=== PATIENT | female | born 1995 | race Caucasian/White ===

== ENCOUNTER 2016-10-30 13:15 | Emergency (ER) | payer BC, OTHER ==
[2016-10-30] MEDS ORDERED: SODIUM CHLORIDE 0.9% 1,000 ML IV STA ×2 (13:59)
[2016-10-30] MEDS ORDERED: IBUPROFEN 600 MG TAB PO STA (14:00)
[2016-10-30] MEDS ORDERED: ACETAMINOPHEN TAB 500 MG TAB PO STA (14:00)
--- NOTE | 2016-10-30 14:00 | ED ---
Chest Pain HPI - General Chief Complaint: Chest Pain Stated Complaint: chest pain Time Seen by Provider: 10/30/16 13:38 Source: patient, RN notes reviewed, old records reviewed Mode of arrival: ambulatory Limitations: no limitations - History of Present Illness Initial Comments: 21-year-old female presents emergency Department chief complaint of increased chest pain and cough over the past week. Patient reports that she is a smoker. She reports that she went to urgent care yesterday and told her she come to the emergency department. Patient reports that she did not have time and needed to come at this time. Patient was emergency department tachycardic with a heart rate of 130. She does have a fever 102. Patient reports she's had no recent Motrin or Tylenol. She states that she has had increased pain to her chest whenever she is cough. Denies any abdominal pain or nausea or vomiting. She denies any significant Past medical history or surgical history. Patient denies any recent back pain, abdominal pain, nausea vomiting, numbness or tingling, dysuria or hematuria, constipation or diarrhea, headaches or visual changes, or any other current symptoms - Related Data Home Medications Medication Instructions Recorded Confirmed guaiFENesin SYRUP 100MG/5ML 200 mg PO Q12HR PRN 02/29/16 10/30/16 [Robitussin] Acetaminophen Tab [Tylenol Tab] 650 mg PO Q4H PRN 10/30/16 10/30/16 Albuterol Nebulized [Ventolin 2.5 mg INHALATION RT-Q6H PRN 10/30/16 10/30/16 Nebulized] Ferrous Sulfate [Feosol] 325 mg PO DAILY 10/30/16 10/30/16 Ibuprofen [Motrin] 400 - 800 mg PO Q6HR PRN 10/30/16 10/30/16 guaiFENesin [Mucinex] 600 - 1,200 mg PO Q8H PRN 10/30/16 10/30/16 Previous Rx's Medication Instructions Recorded Albuterol Inhaler [Ventolin Hfa 1 - 2 puff INHALATION Q6HR PRN #1 10/30/16 Inhaler] inhaler Azithromycin [Zithromax Z-pack] 250 mg PO DIRECTED #6 tab 10/30/16 Allergies Allergy/AdvReac Type Severity Reaction Status Date / Time No Known Allergies Allergy Verified 10/30/16 14:17 Review of Systems ROS Statement: Those systems with pertinent positive or pertinent negative responses have been documented in the HPI. ROS Other: All systems not noted in ROS Statement are negative. EKG Findings - EKG Comments: EKG Findings:: EKG performed at 1332 shows sinus tachycardia ventricular rate of 134 bpm. TX interval 144 ms. QRS ratio 80 ms. QT QTc is 3 at 2/450 ms. No evidence of ST elevation or T-wave inversion. No dysmetria or ventricular arrhythmias. Past Medical History Past Medical History: No Reported History History of Any Multi-Drug Resistant Organisms: None Reported Past Surgical History: Section Past Anesthesia/Blood Transfusion Reactions: No Reported Reaction Past Psychological History: No Psychological Hx Reported Smoking Status: Current every day smoker Past Alcohol Use History: None Reported Past Drug Use History: None Reported - Past Family History Mother Family Medical History: No Reported History General Exam - General Exam Comments Initial Comments: 21-year-old female. Patient does appear to be in mild discomfort. Limitations: no limitations General appearance: alert, in no apparent distress Head exam: Present: atraumatic, normocephalic, normal inspection Eye exam: Present: normal appearance, PERRL, EOMI. Absent: scleral icterus, conjunctival injection, periorbital swelling ENT exam: Present: normal exam, normal oropharynx, mucous membranes moist Neck exam: Present: normal inspection. Absent: tenderness, meningismus, lymphadenopathy Respiratory exam: Present: normal lung sounds bilaterally, wheezes. Absent: respiratory distress, rales, rhonchi, stridor Cardiovascular Exam: Present: regular rate, normal rhythm, normal heart sounds. Absent: systolic murmur, diastolic murmur, rubs, gallop, clicks GI/Abdominal exam: Present: soft, normal bowel sounds. Absent: distended, tenderness, guarding, rebound, rigid Extremities exam: Present: normal inspection, full ROM, normal capillary refill. Absent: tenderness, pedal edema, joint swelling, calf tenderness Back exam: Present: normal inspection Neurological exam: Present: alert, oriented X3, CN II-XII intact Psychiatric exam: Present: normal affect, normal mood Skin exam: Present: warm, dry, intact, normal color. Absent: rash Course Vital Signs 10/30/16 10/30/16 10/30/16 13:17 14:19 14:44 Temperature 99.2 F 101.2 F H Pulse Rate 120 H 117 H 124 H Pulse Rate [ 117 H Sander Setter ] Respiratory 18 18 Rate Blood Pressure 125/84 137/84 O2 Sat by Pulse 100 98 Oximetry 10/30/16 10/30/16 14:50 15:12 Temperature 98 F Pulse Rate 114 H 118 H Pulse Rate [ Sander Setter ] Respiratory 21 Rate Blood Pressure 141/109 O2 Sat by Pulse 95 Oximetry Chest Pain MDM - MDM 21-year-old female presents emergency Department chief complaint of increased chest pain and cough over the past week. Patient reports that she is a smoker. She reports that she went to urgent care yesterday and told her she come to the emergency department. Patient reports that she did not have time and needed to come at this time. Patient was emergency department tachycardic with a heart rate of 130. She does have a fever 102. Patient reports she's had no recent Motrin or Tylenol. She states that she has had increased pain to her chest whenever she is cough. Patient's chest x-ray was reviewed negative for any acute process. Lab work was somewhat reviewed and is negative however there are some labs pending including TSH and urinalysis and drug screen. Patient continues to be somewhat tachycardic at 150 bpm. She does say that she feels better after breathing treatment and fluids. At this time patient reports that she has to leave for children. I will treat the patient for a bronchitis given her wheezing and fever and similar symptoms. Patient will be started on azithromycin and given albuterol breathing treatment. Discussed that she will still AMA as I do not have all the labs back. Patient agrees. Patient understands treatment plan will comply. Return parameters were discussed. Disposition Clinical Impression: Bronchitis Disposition: Left Against Medical Advice Condition: Good Prescriptions: Albuterol Inhaler [Ventolin Hfa Inhaler] 1 - 2 puff INHALATION Q6HR PRN #1 inhaler PRN Reason: Shortness Of Breath Azithromycin [Zithromax Z-pack] 250 mg PO DIRECTED #6 tab Referrals: None,Stated [Primary Care Provider] - 1-2 days
[2016-10-30] MEDS ORDERED: IPRATROPIUM-ALBUTEROL 3 ML NEB INHALATION STA (14:30)
[2016-10-30 14:38] LABS: Basophils % (A) 1 %; CH 29.5; Eosinophils % (A) 1 %; HCT 39.3 % (34.0-46.0); HDW 2.57; HGB 13.4 gm/dL (11.4-16.0); Luc # (Auto) 0.11; Luc % (Auto) 2; Lymphocytes % (A) 21 %; MCH 29.8 pg (25.0-35.0); MCHC 34.2 g/dL (31.0-37.0); Mean Platelet Volume 7.7; Monocytes # (A) 0.3 k/uL (0-1.0); Monocytes % (A) 6 %; Neutrophils # (A) 3.4 k/uL (1.3-7.7); Neutrophils % (A) 70 %; RBC 4.52 m/uL (3.80-5.40); RDW 13.7 % (11.5-15.5); WBC 4.8 k/uL (3.8-10.6); WBC (Perox) 4.86
--- NOTE | 2016-10-30 14:45 | XR ---
EXAMINATION TYPE: XR chest 2V DATE OF EXAM: 10/30/2016 COMPARISON: NONE TECHNIQUE: PA and lateral views submitted. HISTORY: Cough FINDINGS: The lungs are clear and there is no pneumothorax, pleural effusion, or focal pneumonia. IMPRESSION: 1. No acute process.
[2016-10-30 14:50] LABS: ALT 39 U/L (9-52); AST 36 U/L (14-36); Alkaline Phosphatase 73 U/L (38-126); Anion Gap 9 mmol/L; Blood Urea Nitrogen 5 mg/dL (7-17); Calcium 8.9 mg/dL (8.4-10.2); Carbon Dioxide 21 mmol/L (22-30); Chloride 108 mmol/L (98-107); Glucose 98 mg/dL (74-99); Magnesium 1.7 mg/dL (1.6-2.3); Non-African American GFR(MDRD) >60 (>60 ml/min/1.73 sqM); Sodium 138 mmol/L (137-145); Total Bilirubin 0.3 mg/dL (0.2-1.3); Total Protein 6.8 g/dL (6.3-8.2)
[2016-10-30 14:51] LABS: Partial Thromboplastin Time 30.3 sec (22.0-30.0); Potassium 4.4 mmol/L (3.5-5.1); Prothrombin Time 10.2 sec (9.0-12.0)
[2016-10-30 15:13] VITALS: BP 141/109; PULSE 118; RESP 21; TEMP 98
[2016-10-30 16:05] LABS: Appearance,Urine Turbid (Clear); Bacteria,Urine Many /hpf; Bilirubin,Urine Negative (Negative); Glucose,Urine (UA) Negative (Negative); Ketones,Urine Negative (Negative); Leukocyte Esterase,Urine Negative (Negative); Nitrite,Urine Negative (Negative); PH, Urine 5.5 (5.0-8.0); Particle Count 25845; Protein,Urine Trace (Negative); RBC,Urine 1 /hpf (0-5); Specific Gravity,Urine 1.009 (1.001-1.035); Squamous Epithelial Cell,Urine 161 /hpf (0-4); UA Billing (MACRO vs. MICRO) MICRO; Urobilinogen,Urine <2.0 mg/dL (<2.0)
== END 2016-10-30 16:24 | disposition left against medical advice (07) ==
LOC: EC 13:15
DX: J40 Bronchitis, not specified as acute or chronic (principal); R00.0 Tachycardia, unspecified; F17.200 Nicotine dependence, unspecified, uncomplicated; Z79.899 Other long term (current) drug therapy
CPT/HCPCS: 36415; 71020; 80053; 80306; 81001; 83735; 84443; 84484; 85025; 85379; 85610; 85730; 87040; 93005; 94640; 96360; 96361; 99285

== ENCOUNTER → 2020-01-08 | Outpatient (CLI) | payer BC, OTHER | END | disposition home or self-care (01) | LOC: LABWHC1 10:22 | PROVIDERS: ATTEND Emergency Medicine | DX: Z20.828 Contact with and (suspected) exposure to other viral communicable diseases (principal) | CPT/HCPCS: U0003; C9803 ==

== ENCOUNTER 2023-12-20 21:50 | Emergency (ER) | payer BC, OTHER ==
[2023-12-20 21:58] VITALS: BP 145/81; PULSE 102; RESP 18; TEMP 98
[2023-12-20] MEDS: LIDOCAINE 1% INJ 10MG/ML (20 ML MDV) SQ ONE (22:16)
--- NOTE | 2023-12-20 22:26 | ED ---
Skin/Abscess/FB HPI - General Chief complaint: Skin/Abscess/Foreign Body Stated complaint: Fishing hook in L hand Time Seen by Provider: 12/20/23 22:03 Source: patient Mode of arrival: ambulatory Limitations: no limitations - History of Present Illness Initial comments: This patient is a 28-year-old woman who presents to have evaluation for a fishhook embedded in the pad of her left second finger. Patient was fishing approximately 9 PM when this occurred. She denies any other injury. No loss of sensation. She states that she believes her last tetanus shot was over 10 years ago. complaint: foreign body Onset/Timin -: hour(s) Tetanus Up to Date: no Severity: moderate Quality: sharp Consistency: constant Improves with: immobilization Worsens with: movement Context: other Associated symptoms: denies other symptoms Treatments Prior to Arrival: none - Related Data Home Medications Medication Instructions Recorded Confirmed guaiFENesin SYRUP 100MG/5ML 200 mg PO Q12HR PRN 02/29/16 10/30/16 [Robitussin] Acetaminophen Tab [Tylenol Tab] 650 mg PO Q4H PRN 10/30/16 10/30/16 Albuterol Nebulized [Ventolin 2.5 mg INHALATION RT-Q6H PRN 10/30/16 10/30/16 Nebulized] Ferrous Sulfate [Feosol] 325 mg PO DAILY 10/30/16 10/30/16 Ibuprofen [Motrin] 400 - 800 mg PO Q6HR PRN 10/30/16 10/30/16 guaiFENesin [Mucinex] 600 - 1,200 mg PO Q8H PRN 10/30/16 10/30/16 Previous Rx's Medication Instructions Recorded Albuterol Inhaler [Ventolin Hfa 1 - 2 puff INHALATION Q6HR PRN #1 10/30/16 Inhaler] inhaler Azithromycin [Zithromax Z-pack (6 250 mg PO DIRECTED #6 tab 10/30/16 tabs)] Allergies Allergy/AdvReac Type Severity Reaction Status Date / Time No Known Allergies Allergy Verified 12/20/23 21:54 Review of Systems ROS Statement: Those systems with pertinent positive or pertinent negative responses have been documented in the HPI. ROS Other: All systems not noted in ROS Statement are negative. Constitutional: Denies: fever Skin: Reports: as per HPI Neurological: Denies: weakness, numbness, paresthesias Hematological/Lymphatic: Denies: easy bleeding Past Medical History Past Medical History: No Reported History History of Any Multi-Drug Resistant Organisms: None Reported Past Surgical History: Section Additional Past Surgical History / Comment(s): c section X2 Past Anesthesia/Blood Transfusion Reactions: No Reported Reaction Past Psychological History: No Psychological Hx Reported Smoking Status: Current every day smoker, Vaper Past Alcohol Use History: None Reported Past Drug Use History: None Reported - Past Family History Mother Family Medical History: No Reported History General Exam Limitations: no limitations General appearance: alert, in no apparent distress Skin exam: Present: warm, dry, normal color, other (Patient has 1 rocío of a trouble hook embedded in the skin of the distal phalanx left second digit.) Course Vital Signs 12/20/23 21:55 Temperature 98.0 F Pulse Rate 102 H Respiratory 18 Rate Blood Pressure 145/81 O2 Sat by Pulse 100 Oximetry Procedures - Forgein Body Removal Soft Tissue Consent Obtained: verbal consent Site: hand Anesthetic Used: lidocaine 1% Foreign Body Suspected: Fish Hook Foreign Body Removed: yes Foreign Body Removal Technique: Forceps Patient Tolerated Procedure: well, no complications Medical Decision Making - Medical Decision Making I was able to remove the fishhook in the following manner. I cleansed the skin. I injected 1% lidocaine without epinephrine along the path of the fishhook. There was good local anesthesia. I was then able to use pliers to back the hook out without complication. This booster was ordered. The patient soaked the injury and antiseptic solution. Was pt. sent in by a medical professional or institution (, PA, LOGGING TRACTOR OPERATOR SWAMP, urgent care, hospital, or custodial...) When possible be specific @ -[No] Did you speak to anyone other than the patient for history (EMS, parent, family, police, friend...)? What history was obtained from this source @ -[No] Did you review nursing and triage notes (agree or disagree)? Why? @ -[I reviewed and agree with nursing and triage notes] Were old charts reviewed (outside hosp., previous admission, EMS record, old EKG, old radiological studies, urgent care reports/EKG's, custodial records)? Report findings @ -[No old charts were reviewed] Differential Diagnosis (chest pain, altered mental status, abdominal pain women, abdominal pain men, vaginal bleeding, weakness, fever, dyspnea, syncope, headache, dizziness, GI bleed, back pain, seizure, CVA, palpatations, mental health, musculoskeletal)? @ -[[facility] embedded in finger EKG interpreted by me (3pts min.). @ -[As above] X-rays interpreted by me (1pt min.). @ -[None done] CT interpreted by me (1pt min.). @ -[None done] U/S interpreted by me (1pt. min.). @ -[None done] What testing was considered but not performed or refused? (CT, X-rays, U/S, labs)? Why? @ -[None] What meds were considered but not given or refused? Why? @ -[None] Did you discuss the management of the patient with other professionals ( professionals i.e. , PA, LOGGING TRACTOR OPERATOR SWAMP, lab, RT, psych nurse, social media marketing analyst, entry level web developer, teacher, weapons officer naval activity, case management social worker)? Give summary @ -[No] Was smoking cessation discussed for >3mins.? @ -[No] Was critical care preformed (if so, how long)? @ -[No] Were there social determinants of health that impacted care today? How? (Homelessness, low income, unemployed, alcoholism, drug addiction, transportati on, low edu. Level, literacy, decrease access to med. care, residential, rehab)? @ -[No] Was there de-escalation of care discussed even if they declined (Discuss DNR or withdrawal of care, Hospice)? DNR status @ -[No] What co-morbidities impacted this encounter? (DM, HTN, Smoking, COPD, CAD, Cancer, CVA, ARF, Chemo, Hep., AIDS, mental health diagnosis, sleep apnea, morbid obesity)? @ -[None] Was patient admitted / discharged? Hospital course, mention meds given and route, prescriptions, significant lab abnormalities, going to OR and other pertinent info. @ -[See above Undiagnosed new problem with uncertain prognosis? @ -[No] Drug Therapy requiring intensive monitoring for toxicity (Heparin, Nitro, Insulin, Cardizem)? @ -[No] Were any procedures done? @ -[[facility] removal Diagnosis/symptom? @ -[[facility] embedded in finger with removal Acute, or Chronic, or Acute on Chronic? @ -[Acute Uncomplicated (without systemic symptoms) or Complicated (systemic symptoms)? @ -[Uncomplicated Side effects of treatment? @ -[No] Exacerbation, Progression, or Severe Exacerbation? @ -[No] Poses a threat to life or bodily function? How? (Chest pain, [place], [place], pneumonia, PE, COPD, DKA, ARF, appy, cholecystitis, CVA, Diverticulitis, Homicidal, Suicidal, threat to staff... and all critical care pts) @ -[No] Disposition Clinical Impression: Fish hook in finger Disposition: HOME SELF-CARE Condition: Good Instructions (If sedation given, give patient instructions): Soft Tissue Foreign Body (ED) Is patient prescribed a controlled substance at d/c from ED?: No Referrals: None,Stated [Primary Care Provider] - 1-2 days
[2023-12-20] MEDS: DIPH,PERTUS(ACELL)TETVAC-LF 0.5 ML VIAL IM ONE (22:31)
== END 2023-12-20 22:50 | disposition home or self-care (01) ==
LOC: EC 21:50
DX: S60.552A Superficial foreign body of left hand, initial encounter (principal); F17.290 Nicotine dependence, other tobacco product, uncomplicated; W45.8XXA Other foreign body or object entering through skin, initial encounter
CPT/HCPCS: 99283; 10120; J2001; 90715